=== PATIENT | female | born 1930 | race Caucasian/White ===

== ENCOUNTER 2017-09-09 11:09 | Inpatient (IN) | payer MEDICARE, BC ==
[~2017-09-09] VITALS: Ht 160 cm; Wt 73.4 kg
[2017-09-09 12:06] LABS: BASOPHILS % (AUTO) 0.2 % (0-1); EOSINOPHILS # (AUTO) 0.1 X10'3 (0-0.9); EOSINOPHILS % (AUTO) 1.3 % (0-6); HEMATOCRIT 36.4 % (35.0-45.0); HEMOGLOBIN 12.5 g/dl (12.0-16.0); LYMPHOCYTES # (AUTO) 0.6 X10'3 (1.1-4.8); LYMPHOCYTES % (AUTO) 8.5 % (21-51); MEAN CORPUSCULAR HGB CONC 34.4 % (33.0-36.5); MEAN CORPUSCULAR VOLUME 84.3 FL (78-98); MEAN PLATELET VOLUME 6.3 FL (7.4-10.4); MONOCYTES # (AUTO) 0.6 X10'3 (0-0.9); MONOCYTES % (AUTO) 8.7 % (2-12); NEUTROPHILS # (AUTO) 5.7 X10'3 (1.8-7.7); NEUTROPHILS % (AUTO) 81.3 % (42-75); PLATELET COUNT 205 X10'3 (140-440); RED BLOOD COUNT 4.32 X10'6 (4.20-5.60); RED CELL DISTRIBUTION WIDTH 13.4 % (11.5-14.5)
[2017-09-09 12:28] LABS: ALANINE AMINOTRANSFERASE 20 U/L (12-78); ALBUMIN 3.5 G/DL (3.4-5.0); ALBUMIN/GLOBULIN RATIO 1.1 (1.1-1.5); ALKALINE PHOSPHATASE 106 IU/L (46-116); ANION GAP 7 (8-16); ASPARTATE AMINO TRANSFERASE 19 U/L (10-37); BILIRUBIN,TOTAL 0.5 MG/DL (0.1-1.0); BLOOD UREA NITROGEN 16 MG/DL (7-18); BUN/CREATININE RATIO 17.8 (6.6-38.0); CALCIUM 9.5 MG/DL (8.5-10.1); CHLORIDE 100 MMOL/L (99-107); GLUCOSE 128 MG/DL (70-104); POTASSIUM 4.2 MMOL/L (3.5-5.1); SODIUM 135 MMOL/L (135-145); TOTAL CARBON DIOXIDE 27.8 MMOL/L (24-32); TOTAL PROTEIN 6.7 G/DL (6.4-8.2); eGFR 60 ML/MIN
[2017-09-09] MEDS ORDERED: nitroGLYCERIN 0.4mg SUBLingual tab SL PRN ×2 (12:30→13:25)
[2017-09-09] MEDS ORDERED: magnesium 4gm in 100ml NS 100 ML IV PRN (13:20)
[2017-09-09] MEDS ORDERED: morphine 2 MG/ML inj. syringe IV PRN ×2 (13:20)
[2017-09-09] MEDS ORDERED: magnesium Cl slow-release 64mg tablet PO PRN (13:20)
[2017-09-09] MEDS ORDERED: potassium Cl 40MEQ/NS 500ml 500 ML IV PRN ×2 (13:20)
[2017-09-09] MEDS ORDERED: magnesium 2GM in 50ml NS 50 ML IV PRN (13:20)
[2017-09-09] MEDS ORDERED: ondansetron/PF 4mg/2ml inj IV PRN (13:20)
[2017-09-09] MEDS ORDERED: acetaminophen 325mg tablet PO PRN ×2 (13:20)
[2017-09-09] MEDS ORDERED: mag hydrox/Alum hydrox/simeth 30ml oral suspension PO PRN (13:20)
[2017-09-09] MEDS ORDERED: HYDROcodone/acetaminophen 10/325mg tab PO PRN (13:20)
[2017-09-09] MEDS ORDERED: potassium Cl 20 mEq SR tablet PO PRN ×2 (13:20)
[2017-09-09] MEDS ORDERED: magnesium hydroxide 30ml (MOM) UD suspension PO PRN (13:20)
[2017-09-09] MEDS ORDERED: metoprolol tartrate 1mg/ml inj IV PRN (13:25)
[2017-09-09] MEDS ORDERED: regadenoson 0.4mg/5ml syringe IV ONE (13:25)
[2017-09-09] MEDS ORDERED: aminophylline 250mg/10ml inj. IV PRN (13:25)
[2017-09-09] MEDS: normal saline 1000ml 1,000 ML IV SCH (14:44)
[2017-09-09 17:08] VITALS: BP 162/68
[2017-09-09 18:00] VITALS: BP 184/78
[2017-09-09 18:30] VITALS: BP 176/65
[2017-09-09] MEDS: docusate sod 100mg capsule PO SCH (20:00)
[2017-09-09] MEDS ORDERED: heparin, porcine 5000 units/ml vial SQ SCH (20:00)
[2017-09-09 20:28] VITALS: BP 166/61
[2017-09-09] MEDS ORDERED: temazepam 15mg capsule PO PRN (21:00)
[2017-09-09] MEDS ORDERED: MEMA10TA PO (21:23)
[2017-09-09] MEDS ORDERED: ATOR20TA66 PO (21:23)
[2017-09-09] MEDS ORDERED: LEVO50TA8 PO (21:23)
[2017-09-09] MEDS ORDERED: ASPI81TA52 PO (21:23)
[2017-09-09] MEDS ORDERED: LISI10TA4 PO (21:23)
[2017-09-09] MEDS ORDERED: MULT-38 PO (21:23)
[2017-09-09 22:00] VITALS: BP 158/67
[2017-09-10] VITALS (13 sets, daily range): BP systolic 106–150; BP diastolic 48–90
[2017-09-10] MEDS: enoxaparin 60mg/0.6ml syringe SUBCUT SCH ×2 (00:49→08:00)
[2017-09-10 07:30] LABS: BASOPHILS % (AUTO) 0.4 % (0-1); EOSINOPHILS # (AUTO) 0.1 X10'3 (0-0.9); EOSINOPHILS % (AUTO) 1.9 % (0-6); HEMOGLOBIN 11.6 g/dl (12.0-16.0); LYMPHOCYTES # (AUTO) 0.8 X10'3 (1.1-4.8); LYMPHOCYTES % (AUTO) 13.9 % (21-51); MEAN CORPUSCULAR HEMOGLOBIN 28.8 PG (27.0-31.0); MEAN CORPUSCULAR VOLUME 84.7 FL (78-98); MEAN PLATELET VOLUME 6.8 FL (7.4-10.4); MONOCYTES # (AUTO) 0.7 X10'3 (0-0.9); MONOCYTES % (AUTO) 13.5 % (2-12); NEUTROPHILS # (AUTO) 3.9 X10'3 (1.8-7.7); NEUTROPHILS % (AUTO) 70.3 % (42-75); PLATELET COUNT 193 X10'3 (140-440); RED BLOOD COUNT 4.02 X10'6 (4.20-5.60); RED CELL DISTRIBUTION WIDTH 13.4 % (11.5-14.5); WHITE BLOOD COUNT 5.5 X10'3 (4.5-11.0)
[2017-09-10 07:51] LABS: ALBUMIN 3.2 G/DL (3.4-5.0); ANION GAP 8 (8-16); BLOOD UREA NITROGEN 15 MG/DL (7-18); BUN/CREATININE RATIO 19.2 (6.6-38.0); CALCIUM 9.2 MG/DL (8.5-10.1); CHLORIDE 101 MMOL/L (99-107); CREATININE 0.78 MG/DL (0.40-0.90); GLUCOSE 95 MG/DL (70-104); MAGNESIUM 1.9 MG/DL (1.5-2.4); POTASSIUM 3.9 MMOL/L (3.5-5.1); SODIUM 136 MMOL/L (135-145); TOTAL CARBON DIOXIDE 26.8 MMOL/L (24-32); eGFR 70 ML/MIN
[2017-09-10 07:54] LABS: TROPONIN I 11.42 NG/ML (0.0-0.05)
[2017-09-10] MEDS: K and/or MAG REPLACEMENT MC SCH (08:00)
[2017-09-10] MEDS: docusate sod 100mg capsule PO SCH ×2 (08:00→20:52)
[2017-09-10] MEDS: pantoprazole 40mg Tablet.DR PO SCH (08:53)
[2017-09-10] MEDS ORDERED: heparin 10,000 units/1 ML INJ IV PRN (09:05)
[2017-09-10] MEDS ORDERED: heparin 10,000 units/1 ML INJ IV ONE (09:05)
[2017-09-10] MEDS: normal saline 1000ml 1,000 ML IV SCH (09:18)
[2017-09-10 11:13] LABS: BASOPHILS % (AUTO) 0.3 % (0-1); EOSINOPHILS % (AUTO) 0.2 % (0-6); HEMATOCRIT 33.3 % (35.0-45.0); HEMOGLOBIN 11.3 g/dl (12.0-16.0); LYMPHOCYTES # (AUTO) 0.8 X10'3 (1.1-4.8); LYMPHOCYTES % (AUTO) 14.1 % (21-51); MEAN CORPUSCULAR HEMOGLOBIN 28.8 PG (27.0-31.0); MEAN CORPUSCULAR VOLUME 84.7 FL (78-98); MEAN PLATELET VOLUME 6.6 FL (7.4-10.4); MONOCYTES # (AUTO) 0.7 X10'3 (0-0.9); MONOCYTES % (AUTO) 12.5 % (2-12); NEUTROPHILS % (AUTO) 72.9 % (42-75); PLATELET COUNT 189 X10'3 (140-440); RED BLOOD COUNT 3.93 X10'6 (4.20-5.60); RED CELL DISTRIBUTION WIDTH 13.4 % (11.5-14.5); WHITE BLOOD COUNT 5.4 X10'3 (4.5-11.0)
[2017-09-10 11:26] LABS: PROTHROMBIN TIME 10.4 SECONDS (9.0-12.0)
[2017-09-10] MEDS ORDERED: midazolam 2 mg/2 ml injection ONE (12:34)
[2017-09-10] MEDS ORDERED: iohexol 350 MG/ML 50ML vial IV ONE (12:34)
[2017-09-10] MEDS ORDERED: iohexol 350MG/ML 100ml bottle IV ONE ×2 (12:34→13:39)
[2017-09-10] MEDS ORDERED: nitroGLYCERIN-Tridil 50MG/D5W 250 ML IV ONE (12:34)
[2017-09-10] MEDS ORDERED: fentaNYL/PF 50MCG/1 ML 2ML syringe ONE (12:34)
[2017-09-10] MEDS ORDERED: heparin 1,000unit/ml 10ml vial 10 ML ONE (12:34)
[2017-09-10] MEDS ORDERED: LIDOcaine 1%/PF (10mg/ml) 5ml vial ONE (12:34)
[2017-09-10] MEDS ORDERED: ticagrelor 90mg tablet ONE (14:32)
[2017-09-10] MEDS ORDERED: protamine sulfate 10mg/ml inj. ONE (14:53)
[2017-09-10] MEDS ORDERED: metoprolol tartrate 1mg/ml inj IV ONE (15:03)
[2017-09-10] MEDS ORDERED: normal saline 1000ml 1,000 ML IV ONE ×2 (15:40→19:45)
[2017-09-10] MEDS ORDERED: ticagrelor 90mg tablet PO ONE (15:45)
[2017-09-10] MEDS ORDERED: proCHLORperazine 10 MG/2 ml inj IV PRN (15:45)
[2017-09-10] MEDS ORDERED: morphine 2 MG/ML inj. syringe IV PRN (15:45)
[2017-09-10] MEDS ORDERED: nitroGLYCERIN-Tridil 50MG/D5W 250 ML IV PRN (15:45)
[2017-09-10] MEDS ORDERED: cyclobenzaprine 10mg tablet PO PRN (15:45)
[2017-09-10] MEDS ORDERED: acetaminophen 325mg tablet PO PRN (15:50)
[2017-09-10] MEDS ORDERED: amiodarone 150mg/dext, iso-os 100 ML IV ONE (15:55)
[2017-09-10] MEDS: carvedilol 6.25mg tablet PO SCH ×2 (16:46→20:52)
[2017-09-10] MEDS: OXAZEpam 15mg capsule PO PRN (16:55)
[2017-09-10 17:06] LABS: BASOPHILS % (AUTO) 0.3 % (0-1); EOSINOPHILS # (AUTO) 0.1 X10'3 (0-0.9); EOSINOPHILS % (AUTO) 1.5 % (0-6); HEMATOCRIT 35.5 % (35.0-45.0); HEMOGLOBIN 12.3 g/dl (12.0-16.0); LYMPHOCYTES # (AUTO) 0.7 X10'3 (1.1-4.8); LYMPHOCYTES % (AUTO) 8.1 % (21-51); MEAN CORPUSCULAR HEMOGLOBIN 28.8 PG (27.0-31.0); MEAN CORPUSCULAR HGB CONC 34.5 % (33.0-36.5); MEAN CORPUSCULAR VOLUME 83.3 FL (78-98); MEAN PLATELET VOLUME 6.7 FL (7.4-10.4); MONOCYTES # (AUTO) 0.9 X10'3 (0-0.9); MONOCYTES % (AUTO) 10.2 % (2-12); NEUTROPHILS # (AUTO) 6.8 X10'3 (1.8-7.7); NEUTROPHILS % (AUTO) 79.9 % (42-75); PLATELET COUNT 192 X10'3 (140-440); RED BLOOD COUNT 4.26 X10'6 (4.20-5.60); RED CELL DISTRIBUTION WIDTH 13.6 % (11.5-14.5); WHITE BLOOD COUNT 8.5 X10'3 (4.5-11.0)
[2017-09-10 17:14] LABS: CHOL/HDL RATIO 1.6 (0.00-4.99); CHOLESTEROL 150 MG/DL (0-200); HDL CHOLESTEROL 91 MG/DL (35-60); LDL CHOLESTEROL 56 MG/DL (50-100); TRIGLYCERIDES 40 MG/DL (20-135)
[2017-09-10] MEDS: HYDROcodone/acetaminophen 5mg/325mg tablet PO PRN (19:00)
[2017-09-10] MEDS ORDERED: MEMANTINE HCL 5 MG PO SCH (20:00)
[2017-09-10] MEDS: memantine 5mg tablet PO SCH (20:52)
[2017-09-10] MEDS: atorvastatin 20mg tablet PO SCH (20:52)
[2017-09-11] VITALS (20 sets, daily range): BP systolic 91–174; BP diastolic 46–84
[2017-09-11] MEDS: HYDROcodone/acetaminophen 5mg/325mg tablet PO PRN (01:47)
[2017-09-11 05:10] LABS: BASOPHILS % (AUTO) 0.4 % (0-1); EOSINOPHILS # (AUTO) 0.1 X10'3 (0-0.9); EOSINOPHILS % (AUTO) 1.8 % (0-6); HEMATOCRIT 32.5 % (35.0-45.0); HEMOGLOBIN 11.3 g/dl (12.0-16.0); LYMPHOCYTES # (AUTO) 0.7 X10'3 (1.1-4.8); LYMPHOCYTES % (AUTO) 10.5 % (21-51); MEAN CORPUSCULAR HEMOGLOBIN 28.8 PG (27.0-31.0); MEAN CORPUSCULAR HGB CONC 34.6 % (33.0-36.5); MEAN CORPUSCULAR VOLUME 83.1 FL (78-98); MEAN PLATELET VOLUME 6.5 FL (7.4-10.4); MONOCYTES # (AUTO) 0.8 X10'3 (0-0.9); MONOCYTES % (AUTO) 12.4 % (2-12); NEUTROPHILS # (AUTO) 4.7 X10'3 (1.8-7.7); NEUTROPHILS % (AUTO) 74.9 % (42-75); PLATELET COUNT 195 X10'3 (140-440); RED BLOOD COUNT 3.91 X10'6 (4.20-5.60); RED CELL DISTRIBUTION WIDTH 13.5 % (11.5-14.5); WHITE BLOOD COUNT 6.3 X10'3 (4.5-11.0)
[2017-09-11 05:33] LABS: ALBUMIN 3.1 G/DL (3.4-5.0); ANION GAP 7 (8-16); BLOOD UREA NITROGEN 14 MG/DL (7-18); BUN/CREATININE RATIO 18.2 (6.6-38.0); CALCIUM 9.4 MG/DL (8.5-10.1); CHLORIDE 101 MMOL/L (99-107); CREATININE 0.77 MG/DL (0.40-0.90); GLUCOSE 89 MG/DL (70-104); POTASSIUM 4.3 MMOL/L (3.5-5.1); SODIUM 135 MMOL/L (135-145); TOTAL CARBON DIOXIDE 26.8 MMOL/L (24-32); eGFR 71 ML/MIN
[2017-09-11] MEDS: normal saline 1000ml 1,000 ML IV SCH (06:07)
[2017-09-11] MEDS: K and/or MAG REPLACEMENT MC SCH (07:14)
[2017-09-11] MEDS: ticagrelor 90mg tablet PO SCH ×2 (07:53→20:14)
[2017-09-11] MEDS: pantoprazole 40mg Tablet.DR PO SCH (07:53)
[2017-09-11] MEDS: OXAZEpam 15mg capsule PO PRN (07:53)
[2017-09-11] MEDS: levoTHYROXINE 25mcg tablet PO SCH (07:54)
[2017-09-11] MEDS: carvedilol 6.25mg tablet PO SCH ×2 (07:54→20:14)
[2017-09-11] MEDS: memantine 5mg tablet PO SCH ×2 (07:55→20:14)
[2017-09-11] MEDS: docusate sod 100mg capsule PO SCH ×2 (07:56→20:14)
[2017-09-11] MEDS ORDERED: lisinopril 10 MG tablet PO SCH (08:00)
[2017-09-11] MEDS ORDERED: non-formulary drug (Levothyroxine Sodium 1 TAB) PO SCH (08:00)
[2017-09-11] MEDS ORDERED: furosemide 20 MG/2 ML vial IV ONE (11:40)
[2017-09-11] MEDS: lisinopril 10 MG tablet PO SCH ×2 (15:37→20:14)
[2017-09-11] MEDS: nitroGLYCERIN 0.4mg/hour patch TD SCH (17:12)
[2017-09-11] MEDS: atorvastatin 20mg tablet PO SCH (20:14)
[2017-09-12 03:00] VITALS: BP 137/58
[2017-09-12] MEDS ORDERED: diltiazem-D5W 125mg/125ml 125 ML IV SCH (04:30)
[2017-09-12 06:00] VITALS: BP 122/57
[2017-09-12 06:07] LABS: ALBUMIN 3.6 G/DL (3.4-5.0); ANION GAP 7 (8-16); BLOOD UREA NITROGEN 12 MG/DL (7-18); BUN/CREATININE RATIO 14.3 (6.6-38.0); CALCIUM 9.9 MG/DL (8.5-10.1); CHLORIDE 99 MMOL/L (99-107); CREATININE 0.84 MG/DL (0.40-0.90); GLUCOSE 109 MG/DL (70-104); MAGNESIUM 1.9 MG/DL (1.5-2.4); POTASSIUM 3.7 MMOL/L (3.5-5.1); SODIUM 136 MMOL/L (135-145); TOTAL CARBON DIOXIDE 29.9 MMOL/L (24-32); eGFR 64 ML/MIN
[2017-09-12] MEDS: memantine 5mg tablet PO SCH ×2 (07:15→20:21)
[2017-09-12] MEDS: levoTHYROXINE 25mcg tablet PO SCH (07:15)
[2017-09-12] MEDS: carvedilol 6.25mg tablet PO SCH ×2 (07:16→20:21)
[2017-09-12] MEDS: lisinopril 10 MG tablet PO SCH ×2 (07:16→20:21)
[2017-09-12] MEDS: ticagrelor 90mg tablet PO SCH ×2 (07:16→20:21)
[2017-09-12] MEDS: docusate sod 100mg capsule PO SCH ×2 (07:16→20:21)
[2017-09-12] MEDS: pantoprazole 40mg Tablet.DR PO SCH (07:16)
[2017-09-12] MEDS: K and/or MAG REPLACEMENT MC SCH (08:00)
[2017-09-12] MEDS: nitroGLYCERIN 0.4mg/hour patch TD SCH (08:00)
[2017-09-12] MEDS: aspirin 81mg tab.chew PO SCH (08:41)
[2017-09-12] MEDS ORDERED: potassium Cl 20 mEq SR tablet PO STA (09:38)
[2017-09-12] MEDS ORDERED: furosemide 20 MG/2 ML vial IV ONE (09:40)
[2017-09-12] MEDS ORDERED: amiodarone in dextrose, iso-osm 150mg/100ml bag IV ONE (09:40)
[2017-09-12 10:21] LABS: ALANINE AMINOTRANSFERASE 37 U/L (12-78); ALKALINE PHOSPHATASE 97 IU/L (46-116); ASPARTATE AMINO TRANSFERASE 75 U/L (10-37); BILIRUBIN,DIRECT 0.1 MG/DL (0-0.3); BILIRUBIN,TOTAL 0.8 MG/DL (0.1-1.0); TOTAL PROTEIN 7.2 G/DL (6.4-8.2)
[2017-09-12] MEDS: albuterol 2.5 MG/3 ML nebule NEB PRN ×3 (10:22→21:40)
[2017-09-12 11:00] VITALS: BP 112/55
[2017-09-12 15:00] VITALS: BP 119/50
[2017-09-12 19:00] VITALS: BP 161/69
[2017-09-12] MEDS: atorvastatin 20mg tablet PO SCH (20:21)
[2017-09-12] MEDS: amiodarone 200mg tablet PO SCH (20:21)
[2017-09-12 23:00] VITALS: BP 157/63
[2017-09-12] MEDS: HYDROcodone/acetaminophen 5mg/325mg tablet PO PRN (23:27)
[2017-09-13 03:00] VITALS: BP 154/57
[2017-09-13 05:31] LABS: ALBUMIN 3.2 G/DL (3.4-5.0); ANION GAP 7 (8-16); BLOOD UREA NITROGEN 13 MG/DL (7-18); BUN/CREATININE RATIO 14.9 (6.6-38.0); CALCIUM 9.1 MG/DL (8.5-10.1); CHLORIDE 96 MMOL/L (99-107); CREATININE 0.87 MG/DL (0.40-0.90); GLUCOSE 97 MG/DL (70-104); POTASSIUM 3.6 MMOL/L (3.5-5.1); SODIUM 131 MMOL/L (135-145); TOTAL CARBON DIOXIDE 28.3 MMOL/L (24-32); eGFR 62 ML/MIN
[2017-09-13 06:00] VITALS: BP 155/57
[2017-09-13] MEDS: lisinopril 10 MG tablet PO SCH (07:10)
[2017-09-13] MEDS: docusate sod 100mg capsule PO SCH (07:10)
[2017-09-13] MEDS: pantoprazole 40mg Tablet.DR PO SCH (07:10)
[2017-09-13] MEDS: ticagrelor 90mg tablet PO SCH (07:10)
[2017-09-13] MEDS: amiodarone 200mg tablet PO SCH (07:10)
[2017-09-13] MEDS: carvedilol 6.25mg tablet PO SCH (07:10)
[2017-09-13] MEDS: memantine 5mg tablet PO SCH (07:10)
[2017-09-13] MEDS: levoTHYROXINE 25mcg tablet PO SCH (07:10)
[2017-09-13] MEDS: albuterol 2.5 MG/3 ML nebule NEB PRN ×2 (07:25→11:50)
[2017-09-13] MEDS: nitroGLYCERIN 0.4mg/hour patch TD SCH (08:00)
[2017-09-13] MEDS: K and/or MAG REPLACEMENT MC SCH (08:00)
[2017-09-13] MEDS: aspirin 81mg tab.chew PO SCH (10:27)
[2017-09-13 11:00] VITALS: BP 125/56
[2017-09-13] MEDS ORDERED: NIT10P TD (12:30)
[2017-09-13] MEDS ORDERED: TICA90TA PO (12:30)
[2017-09-13] MEDS ORDERED: AMIO200T57 PO (12:30)
[2017-09-13] MEDS ORDERED: NITR0.4T51 SL (12:30)
[2017-09-13] MEDS ORDERED: CARV6.253 PO (12:30)
[2017-09-13] MEDS ORDERED: LISI1TAB9 PO (12:30)
[2017-09-13] MEDS: HYDROcodone/acetaminophen 5mg/325mg tablet PO PRN (13:31)
== END 2017-09-13 15:55 | disposition home or self-care (01) | DRG 247 ==
LOC: ER 11:09 → ED HOLD 12:49 → EDBEDREQ 15:45 → PCU 3S 16:25 → ICU 2S 09-10 15:02 → PCU 3S 09-11 17:45
PROVIDERS: ADMIT Internal Medicine; ATTEND Internal Medicine
PROC: 4A02XM4 Measurement of Cardiac Total Activity, External Approach (ICD-10-PCS; 2017-09-09)
PROC: 3E073KZ Introduction of Other Diagnostic Substance into Coronary Artery, Percutaneous Approach (ICD-10-PCS; 2017-09-09)
PROC: 027034Z Dilation of Coronary Artery, One Artery with Drug-eluting Intraluminal Device, Percutaneous Approach (ICD-10-PCS; principal; 2017-09-10)
PROC: 4A023N7 Measurement of Cardiac Sampling and Pressure, Left Heart, Percutaneous Approach (ICD-10-PCS; 2017-09-10)
PROC: B2111ZZ Fluoroscopy of Multiple Coronary Arteries using Low Osmolar Contrast (ICD-10-PCS; 2017-09-10)
PROC: B2151ZZ Fluoroscopy of Left Heart using Low Osmolar Contrast (ICD-10-PCS; 2017-09-10)
DX: I21.4 Non-ST elevation (NSTEMI) myocardial infarction (principal); I48.0 Paroxysmal atrial fibrillation; I11.0 Hypertensive heart disease with heart failure; I50.32 Chronic diastolic (congestive) heart failure; F03.90 Unspecified dementia, unspecified severity, without behavioral disturbance, psychotic disturbance, mood disturbance, and anxiety; J44.9 Chronic obstructive pulmonary disease, unspecified; E78.5 Hyperlipidemia, unspecified; E03.9 Hypothyroidism, unspecified; I25.10 Atherosclerotic heart disease of native coronary artery without angina pectoris; M19.90 Unspecified osteoarthritis, unspecified site; H11.32 Conjunctival hemorrhage, left eye; Z90.49 Acquired absence of other specified parts of digestive tract; Z95.5 Presence of coronary angioplasty implant and graft; Z98.49 Cataract extraction status, unspecified eye; Z88.0 Allergy status to penicillin; Z88.1 Allergy status to other antibiotic agents; Z79.82 Long term (current) use of aspirin; Z79.899 Other long term (current) drug therapy; Z87.891 Personal history of nicotine dependence
CPT/HCPCS: 93306; 93458; 99285; C9600; 36415; 71045; 78451; 80048; 80053; 80061; 80076; 83605; 83735; 83880; 84439; 84443; 84484; 85025; 85347; 85610; 85730; 87040; 87070; 93005; 93308; 94640; 94760; 97110; 97116; 97530; 99152; 99153; A4620; A6213; A6257; A6449; A9500; C1725; C1769; C1874; J0282; J1644; J1650; J1940; J2001; J2250; J2270; J2720; J3010; J3490; J7030; Q9967

== ENCOUNTER 2017-09-14 10:00 | Inpatient (IN) | payer MEDICARE, BC ==
[~2017-09-14] VITALS: Ht 152.4 cm; Wt 70.0 kg
[~2017-09-14 10:00] MED LIST: AMIO200T57 PO; ASPI81TA52 PO; ATOR20TA66 PO; CARV6.253 PO; LEVO50TA8 PO; LISI1TAB9 PO; MEMA10TA PO; MULT-38 PO; NIT10P TD; NITR0.4T51 SL; TICA90TA PO
[2017-09-14 10:47] LABS: BASOPHILS % (AUTO) 0.5 % (0-1); EOSINOPHILS # (AUTO) 0.1 X10'3 (0-0.9); EOSINOPHILS % (AUTO) 1.6 % (0-6); HEMATOCRIT 34.7 % (35.0-45.0); HEMOGLOBIN 12.1 g/dl (12.0-16.0); LYMPHOCYTES # (AUTO) 0.6 X10'3 (1.1-4.8); LYMPHOCYTES % (AUTO) 11.4 % (21-51); MEAN CORPUSCULAR HEMOGLOBIN 28.9 PG (27.0-31.0); MEAN CORPUSCULAR VOLUME 82.5 FL (78-98); MEAN PLATELET VOLUME 7.2 FL (7.4-10.4); MONOCYTES # (AUTO) 0.6 X10'3 (0-0.9); MONOCYTES % (AUTO) 12.1 % (2-12); NEUTROPHILS # (AUTO) 4.1 X10'3 (1.8-7.7); NEUTROPHILS % (AUTO) 74.4 % (42-75); PLATELET COUNT 197 X10'3 (140-440); RED CELL DISTRIBUTION WIDTH 12.7 % (11.5-14.5); WHITE BLOOD COUNT 5.4 X10'3 (4.5-11.0)
[2017-09-14 10:57] LABS: ALANINE AMINOTRANSFERASE 39 U/L (12-78); ALBUMIN 3.7 G/DL (3.4-5.0); ALBUMIN/GLOBULIN RATIO 1.1 (1.1-1.5); ALKALINE PHOSPHATASE 105 IU/L (46-116); ANION GAP 5 (8-16); ASPARTATE AMINO TRANSFERASE 41 U/L (10-37); BILIRUBIN,TOTAL 0.8 MG/DL (0.1-1.0); BLOOD UREA NITROGEN 13 MG/DL (7-18); BUN/CREATININE RATIO 15.1 (6.6-38.0); CALCIUM 9.5 MG/DL (8.5-10.1); CHLORIDE 93 MMOL/L (99-107); CREATININE 0.86 MG/DL (0.40-0.90); GLUCOSE 108 MG/DL (70-104); POTASSIUM 3.9 MMOL/L (3.5-5.1); SODIUM 128 MMOL/L (135-145); TOTAL CARBON DIOXIDE 30.2 MMOL/L (24-32); TOTAL PROTEIN 7.2 G/DL (6.4-8.2); eGFR 63 ML/MIN
[2017-09-14] MEDS ORDERED: albuterol 2.5 MG/3 ML nebule NEB ONE ×3 (11:45→14:35)
[2017-09-14] MEDS ORDERED: methylPREDNISolone sod succ 125mg/2ml vial IV ONE (11:45)
[2017-09-14] MEDS ORDERED: mag hydrox/Alum hydrox/simeth 30ml oral suspension PO PRN (15:25)
[2017-09-14] MEDS ORDERED: magnesium 4gm in 100ml NS 100 ML IV PRN (15:25)
[2017-09-14] MEDS ORDERED: ondansetron/PF 4mg/2ml inj IV PRN (15:25)
[2017-09-14] MEDS ORDERED: HYDROcodone/acetaminophen 5mg/325mg tablet PO PRN (15:25)
[2017-09-14] MEDS ORDERED: magnesium 2GM in 50ml NS 50 ML IV PRN (15:25)
[2017-09-14] MEDS ORDERED: potassium Cl 40MEQ/NS 500ml 500 ML IV PRN ×2 (15:25)
[2017-09-14] MEDS ORDERED: HYDROcodone/acetaminophen 10/325mg tab PO PRN (15:25)
[2017-09-14] MEDS ORDERED: morphine 2 MG/ML inj. syringe IV PRN ×2 (15:25)
[2017-09-14] MEDS ORDERED: magnesium hydroxide 30ml (MOM) UD suspension PO PRN (15:25)
[2017-09-14] MEDS ORDERED: bisacodyl 10mg suppository rectal RC PRN (15:25)
[2017-09-14] MEDS ORDERED: magnesium Cl slow-release 64mg tablet PO PRN (15:25)
[2017-09-14] MEDS ORDERED: acetaminophen 325mg tablet PO PRN (15:25)
[2017-09-14] MEDS ORDERED: potassium Cl 20 mEq SR tablet PO PRN ×2 (15:25)
[2017-09-14] MEDS ORDERED: nitroGLYCERIN 0.4mg SUBLingual tab SL PRN (15:30)
[2017-09-14] MEDS ORDERED: LORazepam 2 mg/ml vial IV PRN (15:30)
[2017-09-14] MEDS ORDERED: albuterol 2.5 MG/3 ML nebule NEB PRN (15:30)
[2017-09-14] MEDS ORDERED: benzonatate 100mg capsule PO SCH (16:00)
[2017-09-14] MEDS: furosemide 20 MG/2 ML vial IV SCH ×2 (16:23→20:52)
[2017-09-14] MEDS: levoFLOXACIN-Levaquin 750MG/D5 150 ML IV SCH (16:23)
[2017-09-14] MEDS: benzonatate 100mg capsule PO SCH ×2 (16:23→23:23)
[2017-09-14] MEDS: potassium Cl 20 mEq SR tablet PO SCH (18:12)
[2017-09-14] MEDS: ipratropium/albuterol 3ml nebule NEB SCH ×2 (19:07→23:21)
[2017-09-14] MEDS: carvedilol 6.25mg tablet PO SCH (20:52)
[2017-09-14] MEDS: methylPREDNISolone sod succ 125mg/2ml vial IV SCH (20:52)
[2017-09-14] MEDS: ticagrelor 90mg tablet PO SCH (20:53)
[2017-09-14] MEDS: docusate sod 100mg capsule PO SCH (20:56)
[2017-09-14] MEDS: memantine 5mg tablet PO SCH (20:56)
[2017-09-14] MEDS: atorvastatin 20mg tablet PO SCH (20:58)
[2017-09-14 21:20] VITALS: BP 151/68
[2017-09-14 22:00] VITALS: BP 166/80
[2017-09-15 02:00] VITALS: BP 162/73
[2017-09-15] MEDS: methylPREDNISolone sod succ 125mg/2ml vial IV SCH ×5 (02:16→23:43)
[2017-09-15] MEDS: ipratropium/albuterol 3ml nebule NEB SCH ×6 (03:00→23:31)
[2017-09-15 05:29] LABS: BASOPHILS % (AUTO) 0.3 % (0-1); EOSINOPHILS % (AUTO) 0.9 % (0-6); HEMATOCRIT 36.9 % (35.0-45.0); HEMOGLOBIN 12.8 g/dl (12.0-16.0); LYMPHOCYTES # (AUTO) 0.4 X10'3 (1.1-4.8); LYMPHOCYTES % (AUTO) 16.2 % (21-51); MEAN CORPUSCULAR HEMOGLOBIN 28.8 PG (27.0-31.0); MEAN CORPUSCULAR HGB CONC 34.8 % (33.0-36.5); MEAN CORPUSCULAR VOLUME 82.9 FL (78-98); MEAN PLATELET VOLUME 7.1 FL (7.4-10.4); MONOCYTES # (AUTO) 0.1 X10'3 (0-0.9); MONOCYTES % (AUTO) 2.8 % (2-12); NEUTROPHILS # (AUTO) 1.8 X10'3 (1.8-7.7); NEUTROPHILS % (AUTO) 79.8 % (42-75); PLATELET COUNT 217 X10'3 (140-440); RED BLOOD COUNT 4.45 X10'6 (4.20-5.60); RED CELL DISTRIBUTION WIDTH 13.1 % (11.5-14.5); WHITE BLOOD COUNT 2.2 X10'3 (4.5-11.0)
[2017-09-15 05:41] LABS: ANION GAP 7 (8-16); BLOOD UREA NITROGEN 17 MG/DL (7-18); BUN/CREATININE RATIO 19.5 (6.6-38.0); CALCIUM 9.5 MG/DL (8.5-10.1); CHLORIDE 94 MMOL/L (99-107); CREATININE 0.87 MG/DL (0.40-0.90); GLUCOSE 152 MG/DL (70-104); MAGNESIUM 1.9 MG/DL (1.5-2.4); POTASSIUM 3.3 MMOL/L (3.5-5.1); SODIUM 132 MMOL/L (135-145); TOTAL CARBON DIOXIDE 31.2 MMOL/L (24-32); eGFR 62 ML/MIN
[2017-09-15 05:42] LABS: ALANINE AMINOTRANSFERASE 31 U/L (12-78); ALBUMIN 3.5 G/DL (3.4-5.0); ALKALINE PHOSPHATASE 102 IU/L (46-116); ASPARTATE AMINO TRANSFERASE 30 U/L (10-37); BILIRUBIN,TOTAL 0.8 MG/DL (0.1-1.0); TOTAL PROTEIN 7.1 G/DL (6.4-8.2)
[2017-09-15 06:00] VITALS: BP 152/63
[2017-09-15 07:09] LABS: LYMPHOCYTES % (MANUAL) 12 % (21-51); MONOCYTES % (MANUAL) 4 % (2-12); NEUTROPHILS % (MANUAL) 84 % (42-75); PLATELET ESTIMATE NORMAL; TOTAL CELLS COUNTED 100
[2017-09-15] MEDS: benzonatate 100mg capsule PO SCH ×3 (07:45→23:42)
[2017-09-15] MEDS: memantine 5mg tablet PO SCH ×2 (07:46→19:35)
[2017-09-15] MEDS: multivitamins, therapeutics tablet PO SCH (07:46)
[2017-09-15] MEDS: carvedilol 6.25mg tablet PO SCH ×2 (07:46→19:35)
[2017-09-15] MEDS: levoTHYROXINE 25mcg tablet PO SCH (07:47)
[2017-09-15] MEDS: ticagrelor 90mg tablet PO SCH ×2 (07:48→19:35)
[2017-09-15] MEDS: aspirin 81mg tablet.DR PO SCH (07:48)
[2017-09-15] MEDS: docusate sod 100mg capsule PO SCH ×2 (07:48→19:37)
[2017-09-15] MEDS: amiodarone 200mg tablet PO SCH (07:49)
[2017-09-15] MEDS: furosemide 20 MG/2 ML vial IV SCH ×2 (07:50→19:35)
[2017-09-15] MEDS: levoFLOXACIN-Levaquin 750MG/D5 150 ML IV SCH (07:54)
[2017-09-15] MEDS: enoxaparin 40mg/0.4ml syringe SUBCUT SCH (07:54)
[2017-09-15] MEDS: nitroGLYCERIN 0.4mg/hour patch TD SCH (07:55)
[2017-09-15] MEDS: potassium Cl 20 mEq SR tablet PO SCH ×3 (07:56→19:48)
[2017-09-15] MEDS: K and/or MAG REPLACEMENT MC SCH (08:00)
[2017-09-15] MEDS: pantoprazole 40mg Tablet.DR PO SCH (08:00)
[2017-09-15 13:33] VITALS: BP 133/55
[2017-09-15 15:00] VITALS: BP 117/59
[2017-09-15] MEDS ORDERED: methylPREDNISolone sod succ 125mg/2ml vial IV SCH (16:00)
[2017-09-15] MEDS: lactobacillus rhamnosus 10,000 MMU CELLS/CAPSULE PO SCH (16:37)
[2017-09-15 19:00] VITALS: BP 125/62
[2017-09-15] MEDS: atorvastatin 20mg tablet PO SCH (19:48)
[2017-09-15 23:00] VITALS: BP 133/69
[2017-09-16] MEDS: ipratropium/albuterol 3ml nebule NEB SCH ×6 (02:56→23:17)
[2017-09-16 03:00] VITALS: BP 132/66
[2017-09-16 06:00] VITALS: BP 125/54
[2017-09-16 06:34] LABS: BASOPHILS % (AUTO) 0 % (0-1); EOSINOPHILS # (AUTO) 0.1 X10'3 (0-0.9); EOSINOPHILS % (AUTO) 1.3 % (0-6); HEMATOCRIT 33.8 % (35.0-45.0); HEMOGLOBIN 11.7 g/dl (12.0-16.0); LYMPHOCYTES # (AUTO) 0.3 X10'3 (1.1-4.8); LYMPHOCYTES % (AUTO) 3.8 % (21-51); MEAN CORPUSCULAR HEMOGLOBIN 28.7 PG (27.0-31.0); MEAN CORPUSCULAR HGB CONC 34.4 % (33.0-36.5); MEAN CORPUSCULAR VOLUME 83.3 FL (78-98); MEAN PLATELET VOLUME 7.2 FL (7.4-10.4); MONOCYTES # (AUTO) 0.2 X10'3 (0-0.9); MONOCYTES % (AUTO) 3.2 % (2-12); NEUTROPHILS # (AUTO) 6.9 X10'3 (1.8-7.7); NEUTROPHILS % (AUTO) 91.7 % (42-75); PLATELET COUNT 221 X10'3 (140-440); RED BLOOD COUNT 4.07 X10'6 (4.20-5.60); WHITE BLOOD COUNT 7.6 X10'3 (4.5-11.0)
[2017-09-16 06:36] LABS: ALANINE AMINOTRANSFERASE 31 U/L (12-78); ALBUMIN 3.3 G/DL (3.4-5.0); ALKALINE PHOSPHATASE 88 IU/L (46-116); ANION GAP 6 (8-16); ASPARTATE AMINO TRANSFERASE 23 U/L (10-37); BILIRUBIN,TOTAL 0.6 MG/DL (0.1-1.0); BLOOD UREA NITROGEN 24 MG/DL (7-18); CALCIUM 9.1 MG/DL (8.5-10.1); CHLORIDE 91 MMOL/L (99-107); CREATININE 1.09 MG/DL (0.40-0.90); GLUCOSE 148 MG/DL (70-104); MAGNESIUM 1.9 MG/DL (1.5-2.4); POTASSIUM 4.1 MMOL/L (3.5-5.1); SODIUM 127 MMOL/L (135-145); TOTAL CARBON DIOXIDE 29.7 MMOL/L (24-32); TOTAL PROTEIN 6.5 G/DL (6.4-8.2); eGFR 48 ML/MIN
[2017-09-16] MEDS: pantoprazole 40mg Tablet.DR PO SCH (07:48)
[2017-09-16] MEDS: levoTHYROXINE 25mcg tablet PO SCH (07:49)
[2017-09-16] MEDS: ticagrelor 90mg tablet PO SCH ×2 (07:49→20:08)
[2017-09-16] MEDS: aspirin 81mg tablet.DR PO SCH (07:49)
[2017-09-16] MEDS: carvedilol 6.25mg tablet PO SCH ×2 (07:50→20:09)
[2017-09-16] MEDS: benzonatate 100mg capsule PO SCH ×3 (07:50→23:27)
[2017-09-16] MEDS: docusate sod 100mg capsule PO SCH ×2 (07:50→20:00)
[2017-09-16] MEDS: memantine 5mg tablet PO SCH ×2 (07:51→20:08)
[2017-09-16] MEDS: amiodarone 200mg tablet PO SCH (07:51)
[2017-09-16] MEDS: multivitamins, therapeutics tablet PO SCH (07:51)
[2017-09-16] MEDS: levoFLOXACIN-Levaquin 750MG/D5 150 ML IV SCH (07:52)
[2017-09-16] MEDS: nitroGLYCERIN 0.4mg/hour patch TD SCH (07:52)
[2017-09-16] MEDS: furosemide 20 MG/2 ML vial IV SCH ×2 (07:52→20:09)
[2017-09-16] MEDS: methylPREDNISolone sod succ 125mg/2ml vial IV SCH ×2 (07:53→20:09)
[2017-09-16] MEDS: potassium Cl 20 mEq SR tablet PO SCH ×3 (07:55→20:08)
[2017-09-16] MEDS: lactobacillus rhamnosus 10,000 MMU CELLS/CAPSULE PO SCH ×2 (07:55→17:22)
[2017-09-16] MEDS: enoxaparin 40mg/0.4ml syringe SUBCUT SCH (07:55)
[2017-09-16] MEDS: K and/or MAG REPLACEMENT MC SCH (08:00)
[2017-09-16 11:00] VITALS: BP 106/57
[2017-09-16 15:00] VITALS: BP 140/63
[2017-09-16 19:00] VITALS: BP 147/64
[2017-09-16] MEDS: atorvastatin 20mg tablet PO SCH (20:07)
[2017-09-16 23:00] VITALS: BP 142/65
[2017-09-17 03:00] VITALS: BP 140/68
[2017-09-17] MEDS: ipratropium/albuterol 3ml nebule NEB SCH ×3 (03:00→11:17)
[2017-09-17 05:48] LABS: BASOPHILS % (AUTO) 0 % (0-1); EOSINOPHILS # (AUTO) 0.1 X10'3 (0-0.9); EOSINOPHILS % (AUTO) 1.6 % (0-6); HEMATOCRIT 35.7 % (35.0-45.0); HEMOGLOBIN 12.4 g/dl (12.0-16.0); LYMPHOCYTES # (AUTO) 0.3 X10'3 (1.1-4.8); LYMPHOCYTES % (AUTO) 4.8 % (21-51); MEAN CORPUSCULAR HEMOGLOBIN 28.9 PG (27.0-31.0); MEAN CORPUSCULAR HGB CONC 34.9 % (33.0-36.5); MEAN CORPUSCULAR VOLUME 82.8 FL (78-98); MEAN PLATELET VOLUME 7.1 FL (7.4-10.4); MONOCYTES # (AUTO) 0.2 X10'3 (0-0.9); MONOCYTES % (AUTO) 2.9 % (2-12); NEUTROPHILS # (AUTO) 6.1 X10'3 (1.8-7.7); NEUTROPHILS % (AUTO) 90.7 % (42-75); PLATELET COUNT 249 X10'3 (140-440); RED BLOOD COUNT 4.31 X10'6 (4.20-5.60); RED CELL DISTRIBUTION WIDTH 13.3 % (11.5-14.5); WHITE BLOOD COUNT 6.7 X10'3 (4.5-11.0)
[2017-09-17 06:00] VITALS: BP 128/68
[2017-09-17 06:57] LABS: ALANINE AMINOTRANSFERASE 35 U/L (12-78); ALBUMIN 3.2 G/DL (3.4-5.0); ALKALINE PHOSPHATASE 84 IU/L (46-116); ANION GAP 7 (8-16); ASPARTATE AMINO TRANSFERASE 20 U/L (10-37); BILIRUBIN,TOTAL 0.6 MG/DL (0.1-1.0); BLOOD UREA NITROGEN 29 MG/DL (7-18); BUN/CREATININE RATIO 24.2 (6.6-38.0); CALCIUM 9.2 MG/DL (8.5-10.1); CHLORIDE 92 MMOL/L (99-107); GLUCOSE 138 MG/DL (70-104); MAGNESIUM 2.1 MG/DL (1.5-2.4); SODIUM 128 MMOL/L (135-145); TOTAL CARBON DIOXIDE 29.4 MMOL/L (24-32); TOTAL PROTEIN 6.5 G/DL (6.4-8.2); eGFR 43 ML/MIN
[2017-09-17] MEDS: K and/or MAG REPLACEMENT MC SCH (08:00)
[2017-09-17] MEDS: amiodarone 200mg tablet PO SCH (08:20)
[2017-09-17] MEDS: ticagrelor 90mg tablet PO SCH (08:20)
[2017-09-17] MEDS: benzonatate 100mg capsule PO SCH (08:20)
[2017-09-17] MEDS: carvedilol 6.25mg tablet PO SCH (08:20)
[2017-09-17] MEDS: docusate sod 100mg capsule PO SCH (08:22)
[2017-09-17] MEDS: memantine 5mg tablet PO SCH (08:22)
[2017-09-17] MEDS: multivitamins, therapeutics tablet PO SCH (08:22)
[2017-09-17] MEDS: pantoprazole 40mg Tablet.DR PO SCH (08:22)
[2017-09-17] MEDS: potassium Cl 20 mEq SR tablet PO SCH ×2 (08:22→10:31)
[2017-09-17] MEDS: furosemide 20 MG/2 ML vial IV SCH (08:23)
[2017-09-17] MEDS: nitroGLYCERIN 0.4mg/hour patch TD SCH (08:23)
[2017-09-17] MEDS: enoxaparin 40mg/0.4ml syringe SUBCUT SCH (08:24)
[2017-09-17] MEDS: methylPREDNISolone sod succ 125mg/2ml vial IV SCH (08:24)
[2017-09-17] MEDS: lactobacillus rhamnosus 10,000 MMU CELLS/CAPSULE PO SCH (08:27)
[2017-09-17] MEDS: levoTHYROXINE 25mcg tablet PO SCH (08:28)
[2017-09-17] MEDS: aspirin 81mg tablet.DR PO SCH (08:28)
[2017-09-17] MEDS ORDERED: ALBU8.5H8 INH (09:11)
[2017-09-17] MEDS ORDERED: PANT40TA4 PO (09:11)
[2017-09-17] MEDS ORDERED: FLUT1DIS4 INH (09:11)
[2017-09-17] MEDS ORDERED: PRED20TA PO (09:11)
[2017-09-17] MEDS ORDERED: LEVO750T46 PO (09:11)
[2017-09-17] MEDS ORDERED: BENZ-34 PO (09:11)
[2017-09-17] MEDS ORDERED: LACT1CAP26 PO (09:11)
[2017-09-17] MEDS ORDERED: levoFLOXACIN 750MG TABLET PO SCH (11:00)
== END 2017-09-17 12:30 | disposition home health service (06) | DRG 291 ==
LOC: ER 10:00 → ED HOLD 14:30 → PCU 3S 21:53
PROVIDERS: ADMIT Internal Medicine; ATTEND Family Medicine
DX: I11.0 Hypertensive heart disease with heart failure (principal); J96.90 Respiratory failure, unspecified, unspecified whether with hypoxia or hypercapnia; J44.1 Chronic obstructive pulmonary disease with (acute) exacerbation; E87.1 Hypo-osmolality and hyponatremia; J44.0 Chronic obstructive pulmonary disease with (acute) lower respiratory infection; I50.31 Acute diastolic (congestive) heart failure; I48.0 Paroxysmal atrial fibrillation; F03.90 Unspecified dementia, unspecified severity, without behavioral disturbance, psychotic disturbance, mood disturbance, and anxiety; E78.5 Hyperlipidemia, unspecified; H11.32 Conjunctival hemorrhage, left eye; G89.29 Other chronic pain; J20.9 Acute bronchitis, unspecified; I25.10 Atherosclerotic heart disease of native coronary artery without angina pectoris; Z66 Do not resuscitate; I25.2 Old myocardial infarction; Z95.5 Presence of coronary angioplasty implant and graft; Z88.0 Allergy status to penicillin; Z88.1 Allergy status to other antibiotic agents; Z88.8 Allergy status to other drugs, medicaments and biological substances; Z87.891 Personal history of nicotine dependence
CPT/HCPCS: 36415; 71046; 80053; 83605; 83735; 83880; 85025; 87040; 87070; 93005; 94640; 94760; 96374; 97110; 97116; 97161; 99285; J1650; J1940; J1956; J2930

== ENCOUNTER 2017-09-19 12:37 | Inpatient (IN) | payer MEDICARE, BC ==
[~2017-09-19] VITALS: Ht 160 cm; Wt 75.0 kg
[~2017-09-19 12:37] MED LIST changes: +ALBU8.5H8 INH; +BENZ-34 PO; +FLUT1DIS4 INH; +LACT1CAP26 PO; +LEVO750T46 PO; +PANT40TA4 PO; +PRED20TA PO
[2017-09-19] MEDS ORDERED: normal saline 1000ml 1,000 ML IV ONE (12:46)
[2017-09-19 13:37] LABS: BASOPHILS % (AUTO) 0.3 % (0-1); EOSINOPHILS % (AUTO) 0.4 % (0-6); HEMATOCRIT 40.5 % (35.0-45.0); HEMOGLOBIN 13.7 g/dl (12.0-16.0); LYMPHOCYTES # (AUTO) 0.9 X10'3 (1.1-4.8); LYMPHOCYTES % (AUTO) 9.4 % (21-51); MEAN CORPUSCULAR HEMOGLOBIN 28.7 PG (27.0-31.0); MEAN CORPUSCULAR HGB CONC 33.8 % (33.0-36.5); MEAN CORPUSCULAR VOLUME 84.8 FL (78-98); MONOCYTES % (AUTO) 10.9 % (2-12); NEUTROPHILS # (AUTO) 7.5 X10'3 (1.8-7.7); PLATELET COUNT 272 X10'3 (140-440); RED BLOOD COUNT 4.77 X10'6 (4.20-5.60); RED CELL DISTRIBUTION WIDTH 13.1 % (11.5-14.5); WHITE BLOOD COUNT 9.5 X10'3 (4.5-11.0)
[2017-09-19 13:50] LABS: INR 1.1 INR; PARTIAL THROMBOPLASTIN TIME 24 SECONDS (22-32); PROTHROMBIN TIME 11.4 SECONDS (9.0-12.0)
[2017-09-19 14:00] LABS: ALANINE AMINOTRANSFERASE 29 U/L (12-78); ALBUMIN 3.4 G/DL (3.4-5.0); ALBUMIN/GLOBULIN RATIO 1.1 (1.1-1.5); ALKALINE PHOSPHATASE 80 IU/L (46-116); ANION GAP 6 (8-16); ASPARTATE AMINO TRANSFERASE 20 U/L (10-37); BILIRUBIN,TOTAL 0.8 MG/DL (0.1-1.0); BLOOD UREA NITROGEN 32 MG/DL (7-18); BUN/CREATININE RATIO 25.6 (6.6-38.0); CALCIUM 9.3 MG/DL (8.5-10.1); CHLORIDE 90 MMOL/L (99-107); CREATINE KINASE 55 U/L (26-192); CREATININE 1.25 MG/DL (0.40-0.90); GLUCOSE 103 MG/DL (70-104); MAGNESIUM 2.3 MG/DL (1.5-2.4); PHOSPHORUS 3.8 MG/DL (2.3-4.5); POTASSIUM 3.9 MMOL/L (3.5-5.1); SODIUM 124 MMOL/L (135-145); TOTAL CARBON DIOXIDE 27.9 MMOL/L (24-32); TOTAL PROTEIN 6.6 G/DL (6.4-8.2); eGFR 41 ML/MIN
[2017-09-19] MEDS ORDERED: HYDROcodone/acetaminophen 10/325mg tab PO ONE (15:55)
[2017-09-19] MEDS ORDERED: ondansetron/PF 4mg/2ml inj IV ONE (18:15)
[2017-09-19] MEDS ORDERED: potassium Cl 20 mEq SR tablet PO PRN (19:05)
[2017-09-19] MEDS ORDERED: magnesium hydroxide 30ml (MOM) UD suspension PO PRN (19:05)
[2017-09-19] MEDS ORDERED: potassium Cl 40MEQ/NS 500ml 500 ML IV PRN ×2 (19:05)
[2017-09-19] MEDS ORDERED: magnesium Cl slow-release 64mg tablet PO PRN (19:05)
[2017-09-19] MEDS ORDERED: bisacodyl 10mg suppository rectal RC PRN (19:05)
[2017-09-19] MEDS ORDERED: acetaminophen 325mg tablet PO PRN (19:05)
[2017-09-19] MEDS ORDERED: magnesium 4gm in 100ml NS 100 ML IV PRN (19:05)
[2017-09-19] MEDS ORDERED: ondansetron/PF 4mg/2ml inj IV PRN (19:05)
[2017-09-19] MEDS ORDERED: magnesium 2GM in 50ml NS 50 ML IV PRN (19:05)
[2017-09-19] MEDS ORDERED: mag hydrox/Alum hydrox/simeth 30ml oral suspension PO PRN (19:05)
[2017-09-19] MEDS ORDERED: nitroGLYCERIN 0.4mg SUBLingual tab SL PRN (19:10)
[2017-09-19] MEDS ORDERED: hydrALAZINE 20mg/ml inj. IV PRN (19:20)
[2017-09-19] MEDS ORDERED: albuterol 2.5 MG/3 ML nebule NEB PRN (19:20)
[2017-09-19 20:07] LABS: ALANINE AMINOTRANSFERASE 29 U/L (12-78); ALBUMIN 3.2 G/DL (3.4-5.0); ALKALINE PHOSPHATASE 77 IU/L (46-116); ASPARTATE AMINO TRANSFERASE 20 U/L (10-37); BILIRUBIN,DIRECT 0.3 MG/DL (0-0.3); BILIRUBIN,TOTAL 0.8 MG/DL (0.1-1.0)
[2017-09-19 20:09] LABS: TOTAL PROTEIN 6.4 G/DL (6.4-8.2)
[2017-09-19] MEDS: docusate sod 100mg capsule PO SCH (20:15)
[2017-09-19] MEDS: ticagrelor 90mg tablet PO SCH (20:15)
[2017-09-19] MEDS: heparin, porcine 5000 units/ml vial SQ SCH (20:16)
[2017-09-19] MEDS: levoFLOXACIN 750MG TABLET PO SCH (20:16)
[2017-09-19] MEDS: atorvastatin 20mg tablet PO SCH (20:16)
[2017-09-19] MEDS: memantine 5mg tablet PO SCH (20:16)
[2017-09-19] MEDS: normal saline 1000ml 1,000 ML IV SCH (20:23)
[2017-09-19 22:15] VITALS: BP_SYST 109; BP_SYST 123; BP_SYST 128; BP_DIAS 53; BP_DIAS 61; BP_DIAS 63
[2017-09-20] VITALS (8 sets, daily range): BP systolic 103–170; BP diastolic 36–68
[2017-09-20 01:34] LABS: ALANINE AMINOTRANSFERASE 32 U/L (12-78); ALBUMIN 3.2 G/DL (3.4-5.0); ALKALINE PHOSPHATASE 75 IU/L (46-116); ANION GAP 5 (8-16); ASPARTATE AMINO TRANSFERASE 21 U/L (10-37); BILIRUBIN,TOTAL 0.9 MG/DL (0.1-1.0); BLOOD UREA NITROGEN 31 MG/DL (7-18); BUN/CREATININE RATIO 27.2 (6.6-38.0); CALCIUM 8.7 MG/DL (8.5-10.1); CHLORIDE 91 MMOL/L (99-107); CREATININE 1.14 MG/DL (0.40-0.90); GLUCOSE 88 MG/DL (70-104); MAGNESIUM 2.1 MG/DL (1.5-2.4); PHOSPHORUS 3.3 MG/DL (2.3-4.5); POTASSIUM 3.7 MMOL/L (3.5-5.1); SODIUM 124 MMOL/L (135-145); TOTAL CARBON DIOXIDE 27.7 MMOL/L (24-32); TOTAL PROTEIN 6.3 G/DL (6.4-8.2); eGFR 45 ML/MIN
[2017-09-20] MEDS: normal saline 1000ml 1,000 ML IV SCH ×3 (01:44→09:36)
[2017-09-20 05:32] LABS: BASOPHILS % (AUTO) 0 % (0-1); EOSINOPHILS # (AUTO) 0.1 X10'3 (0-0.9); EOSINOPHILS % (AUTO) 1.7 % (0-6); HEMATOCRIT 38.1 % (35.0-45.0); HEMOGLOBIN 13.4 g/dl (12.0-16.0); LYMPHOCYTES # (AUTO) 0.8 X10'3 (1.1-4.8); LYMPHOCYTES % (AUTO) 9.7 % (21-51); MEAN CORPUSCULAR HEMOGLOBIN 28.8 PG (27.0-31.0); MEAN CORPUSCULAR HGB CONC 35.2 % (33.0-36.5); MEAN CORPUSCULAR VOLUME 81.9 FL (78-98); MEAN PLATELET VOLUME 7.2 FL (7.4-10.4); MONOCYTES # (AUTO) 1.1 X10'3 (0-0.9); MONOCYTES % (AUTO) 13.7 % (2-12); NEUTROPHILS % (AUTO) 74.9 % (42-75); PLATELET COUNT 252 X10'3 (140-440); RED BLOOD COUNT 4.65 X10'6 (4.20-5.60); RED CELL DISTRIBUTION WIDTH 13.4 % (11.5-14.5)
[2017-09-20] MEDS ORDERED: HYDROCHLOROTHIAZIDE PO SCH (08:00)
[2017-09-20] MEDS ORDERED: LISINOPRIL PO SCH (08:00)
[2017-09-20] MEDS ORDERED: [UNRECOGNIZED DRUG - OTHER] PO SCH (08:00)
[2017-09-20] MEDS: benzonatate 100mg capsule PO SCH ×3 (09:47→16:29)
[2017-09-20] MEDS: levoTHYROXINE 25mcg tablet PO SCH (09:47)
[2017-09-20] MEDS: predniSONE 20 mg tablet PO SCH (09:47)
[2017-09-20] MEDS: lactobacillus rhamnosus 10,000 MMU CELLS/CAPSULE PO SCH ×2 (09:48→16:30)
[2017-09-20] MEDS: multivitamins, therapeutics tablet PO SCH (09:48)
[2017-09-20] MEDS: pantoprazole 40mg Tablet.DR PO SCH (09:48)
[2017-09-20] MEDS: memantine 5mg tablet PO SCH ×2 (09:49→20:44)
[2017-09-20] MEDS: ticagrelor 90mg tablet PO SCH ×2 (09:49→20:44)
[2017-09-20] MEDS: aspirin 81mg tablet.DR PO SCH (09:49)
[2017-09-20] MEDS: amiodarone 200mg tablet PO SCH (09:49)
[2017-09-20] MEDS: lisinopril 10 MG tablet PO SCH (09:49)
[2017-09-20] MEDS: K and/or MAG REPLACEMENT MC SCH (09:50)
[2017-09-20] MEDS: HYDROchlorothiazide 12.5mg capsule PO SCH (09:50)
[2017-09-20] MEDS: docusate sod 100mg capsule PO SCH ×2 (09:51→20:44)
[2017-09-20] MEDS: heparin, porcine 5000 units/ml vial SQ SCH ×2 (09:52→20:45)
[2017-09-20 10:51] LABS: ANION GAP 8 (8-16); BLOOD UREA NITROGEN 21 MG/DL (7-18); BUN/CREATININE RATIO 19.6 (6.6-38.0); CALCIUM 8.6 MG/DL (8.5-10.1); CHLORIDE 94 MMOL/L (99-107); CREATININE 1.07 MG/DL (0.40-0.90); GLUCOSE 100 MG/DL (70-104); POTASSIUM 3.8 MMOL/L (3.5-5.1); SODIUM 128 MMOL/L (135-145); TOTAL CARBON DIOXIDE 26.3 MMOL/L (24-32); eGFR 49 ML/MIN
[2017-09-20] MEDS: atorvastatin 20mg tablet PO SCH (20:45)
[2017-09-21] MEDS: benzonatate 100mg capsule PO SCH ×3 (00:25→16:38)
[2017-09-21 03:00] VITALS: BP 114/60
[2017-09-21 06:09] LABS: BASOPHILS % (AUTO) 0 % (0-1); EOSINOPHILS # (AUTO) 0.2 X10'3 (0-0.9); EOSINOPHILS % (AUTO) 1.8 % (0-6); HEMATOCRIT 37.4 % (35.0-45.0); HEMOGLOBIN 12.9 g/dl (12.0-16.0); LYMPHOCYTES # (AUTO) 0.8 X10'3 (1.1-4.8); LYMPHOCYTES % (AUTO) 8.1 % (21-51); MEAN CORPUSCULAR HEMOGLOBIN 28.4 PG (27.0-31.0); MEAN CORPUSCULAR HGB CONC 34.4 % (33.0-36.5); MEAN CORPUSCULAR VOLUME 82.4 FL (78-98); MEAN PLATELET VOLUME 7.1 FL (7.4-10.4); MONOCYTES % (AUTO) 9.5 % (2-12); NEUTROPHILS # (AUTO) 8.3 X10'3 (1.8-7.7); NEUTROPHILS % (AUTO) 80.6 % (42-75); PLATELET COUNT 291 X10'3 (140-440); RED BLOOD COUNT 4.54 X10'6 (4.20-5.60); RED CELL DISTRIBUTION WIDTH 13.1 % (11.5-14.5); WHITE BLOOD COUNT 10.3 X10'3 (4.5-11.0)
[2017-09-21 06:23] LABS: ALANINE AMINOTRANSFERASE 16 U/L (12-78); ALBUMIN 2.6 G/DL (3.4-5.0); ALBUMIN/GLOBULIN RATIO 0.9 (1.1-1.5); ALKALINE PHOSPHATASE 67 IU/L (46-116); ANION GAP 3 (8-16); ASPARTATE AMINO TRANSFERASE 18 U/L (10-37); BILIRUBIN,TOTAL 0.8 MG/DL (0.1-1.0); BLOOD UREA NITROGEN 19 MG/DL (7-18); BUN/CREATININE RATIO 17.9 (6.6-38.0); CALCIUM 8.8 MG/DL (8.5-10.1); CHLORIDE 95 MMOL/L (99-107); CREATININE 1.06 MG/DL (0.40-0.90); GLUCOSE 92 MG/DL (70-104); POTASSIUM 3.3 MMOL/L (3.5-5.1); SODIUM 128 MMOL/L (135-145); TOTAL CARBON DIOXIDE 29.6 MMOL/L (24-32); TOTAL PROTEIN 5.4 G/DL (6.4-8.2); eGFR 49 ML/MIN
[2017-09-21 07:00] VITALS: BP 154/58
[2017-09-21 08:00] VITALS: BP_SYST 102; BP_SYST 154; BP_SYST 93; BP_DIAS 48; BP_DIAS 50; BP_DIAS 58
[2017-09-21] MEDS: K and/or MAG REPLACEMENT MC SCH (08:00)
[2017-09-21] MEDS: multivitamins, therapeutics tablet PO SCH (08:07)
[2017-09-21] MEDS: amiodarone 200mg tablet PO SCH (08:07)
[2017-09-21] MEDS: memantine 5mg tablet PO SCH ×2 (08:07→19:47)
[2017-09-21] MEDS: levoFLOXACIN 750MG TABLET PO SCH (08:07)
[2017-09-21] MEDS: potassium Cl 20 mEq SR tablet PO PRN ×3 (08:07→19:41)
[2017-09-21] MEDS: HYDROchlorothiazide 12.5mg capsule PO SCH (08:08)
[2017-09-21] MEDS: aspirin 81mg tablet.DR PO SCH (08:08)
[2017-09-21] MEDS: lisinopril 10 MG tablet PO SCH (08:08)
[2017-09-21] MEDS: lactobacillus rhamnosus 10,000 MMU CELLS/CAPSULE PO SCH ×2 (08:08→16:38)
[2017-09-21] MEDS: predniSONE 20 mg tablet PO SCH (08:08)
[2017-09-21] MEDS: pantoprazole 40mg Tablet.DR PO SCH (08:08)
[2017-09-21] MEDS: docusate sod 100mg capsule PO SCH ×2 (08:08→19:42)
[2017-09-21] MEDS: ticagrelor 90mg tablet PO SCH ×2 (08:09→19:43)
[2017-09-21] MEDS: levoTHYROXINE 25mcg tablet PO SCH (08:09)
[2017-09-21] MEDS: heparin, porcine 5000 units/ml vial SQ SCH ×2 (08:10→19:44)
[2017-09-21] MEDS: normal saline 1000ml 1,000 ML IV SCH ×2 (10:20→19:54)
[2017-09-21 11:00] VITALS: BP 124/56
[2017-09-21 19:00] VITALS: BP 107/46
[2017-09-21] MEDS: atorvastatin 20mg tablet PO SCH (19:47)
[2017-09-21 23:00] VITALS: BP 107/46
[2017-09-22] VITALS (7 sets, daily range): BP systolic 101–163; BP diastolic 48–78
[2017-09-22] MEDS: benzonatate 100mg capsule PO SCH ×3 (00:43→16:58)
[2017-09-22] MEDS: normal saline 1000ml 1,000 ML IV SCH ×2 (06:16→16:47)
[2017-09-22 07:25] LABS: ALANINE AMINOTRANSFERASE 28 U/L (12-78); ALBUMIN 2.5 G/DL (3.4-5.0); ALKALINE PHOSPHATASE 60 IU/L (46-116); ANION GAP 6 (8-16); ASPARTATE AMINO TRANSFERASE 23 U/L (10-37); BILIRUBIN,TOTAL 0.9 MG/DL (0.1-1.0); BLOOD UREA NITROGEN 22 MG/DL (7-18); BUN/CREATININE RATIO 25.6 (6.6-38.0); CALCIUM 8.4 MG/DL (8.5-10.1); CHLORIDE 99 MMOL/L (99-107); CREATININE 0.86 MG/DL (0.40-0.90); GLUCOSE 83 MG/DL (70-104); PHOSPHORUS 1.9 MG/DL (2.3-4.5); SODIUM 128 MMOL/L (135-145); TOTAL CARBON DIOXIDE 23.1 MMOL/L (24-32); TOTAL PROTEIN 5.1 G/DL (6.4-8.2); eGFR 63 ML/MIN
[2017-09-22] MEDS: heparin, porcine 5000 units/ml vial SQ SCH ×2 (08:00→19:46)
[2017-09-22] MEDS: K and/or MAG REPLACEMENT MC SCH (08:00)
[2017-09-22 08:04] LABS: POTASSIUM 4.2 MMOL/L (3.5-5.1)
[2017-09-22] MEDS: levoTHYROXINE 25mcg tablet PO SCH (08:06)
[2017-09-22] MEDS: multivitamins, therapeutics tablet PO SCH (08:06)
[2017-09-22] MEDS: predniSONE 20 mg tablet PO SCH (08:06)
[2017-09-22] MEDS: amiodarone 200mg tablet PO SCH (08:06)
[2017-09-22] MEDS: memantine 5mg tablet PO SCH ×2 (08:06→19:49)
[2017-09-22] MEDS: pantoprazole 40mg Tablet.DR PO SCH (08:06)
[2017-09-22] MEDS: docusate sod 100mg capsule PO SCH ×2 (08:07→19:46)
[2017-09-22] MEDS: HYDROchlorothiazide 12.5mg capsule PO SCH (08:07)
[2017-09-22] MEDS: lactobacillus rhamnosus 10,000 MMU CELLS/CAPSULE PO SCH ×2 (08:07→16:58)
[2017-09-22] MEDS: lisinopril 10 MG tablet PO SCH (08:07)
[2017-09-22] MEDS: ticagrelor 90mg tablet PO SCH ×2 (08:07→19:49)
[2017-09-22] MEDS: aspirin 81mg tablet.DR PO SCH (08:07)
[2017-09-22 10:48] LABS: BASOPHILS % (AUTO) 0 % (0-1); EOSINOPHILS # (AUTO) 0.2 X10'3 (0-0.9); EOSINOPHILS % (AUTO) 1.6 % (0-6); HEMOGLOBIN 13.5 g/dl (12.0-16.0); LYMPHOCYTES % (AUTO) 6.3 % (21-51); MEAN CORPUSCULAR HEMOGLOBIN 28.7 PG (27.0-31.0); MEAN CORPUSCULAR HGB CONC 33.8 % (33.0-36.5); MEAN CORPUSCULAR VOLUME 84.9 FL (78-98); MEAN PLATELET VOLUME 7.4 FL (7.4-10.4); MONOCYTES # (AUTO) 1.4 X10'3 (0-0.9); MONOCYTES % (AUTO) 9.2 % (2-12); NEUTROPHILS # (AUTO) 12.8 X10'3 (1.8-7.7); NEUTROPHILS % (AUTO) 82.9 % (42-75); PLATELET COUNT 288 X10'3 (140-440); RED BLOOD COUNT 4.71 X10'6 (4.20-5.60); RED CELL DISTRIBUTION WIDTH 13.5 % (11.5-14.5); WHITE BLOOD COUNT 15.4 X10'3 (4.5-11.0)
[2017-09-22] MEDS: acetaminophen 325mg tablet PO PRN (19:47)
[2017-09-22] MEDS: atorvastatin 20mg tablet PO SCH (19:48)
[2017-09-23] MEDS: benzonatate 100mg capsule PO SCH ×2 (00:39→08:21)
[2017-09-23 03:00] VITALS: BP 127/43
[2017-09-23] MEDS: normal saline 1000ml 1,000 ML IV SCH ×2 (03:09→12:30)
[2017-09-23 06:58] LABS: BASOPHILS % (AUTO) 0 % (0-1); EOSINOPHILS # (AUTO) 0.2 X10'3 (0-0.9); EOSINOPHILS % (AUTO) 1.9 % (0-6); HEMATOCRIT 34.8 % (35.0-45.0); HEMOGLOBIN 11.9 g/dl (12.0-16.0); LYMPHOCYTES # (AUTO) 0.9 X10'3 (1.1-4.8); LYMPHOCYTES % (AUTO) 8.8 % (21-51); MEAN CORPUSCULAR HEMOGLOBIN 28.5 PG (27.0-31.0); MEAN CORPUSCULAR HGB CONC 34.1 % (33.0-36.5); MEAN CORPUSCULAR VOLUME 83.8 FL (78-98); MEAN PLATELET VOLUME 7.5 FL (7.4-10.4); MONOCYTES # (AUTO) 1.1 X10'3 (0-0.9); NEUTROPHILS # (AUTO) 8.1 X10'3 (1.8-7.7); NEUTROPHILS % (AUTO) 78.3 % (42-75); PLATELET COUNT 266 X10'3 (140-440); RED BLOOD COUNT 4.15 X10'6 (4.20-5.60); RED CELL DISTRIBUTION WIDTH 13.4 % (11.5-14.5); WHITE BLOOD COUNT 10.3 X10'3 (4.5-11.0)
[2017-09-23 07:00] VITALS: BP 133/49
[2017-09-23 07:42] LABS: ALANINE AMINOTRANSFERASE 30 U/L (12-78); ALBUMIN 2.5 G/DL (3.4-5.0); ALKALINE PHOSPHATASE 68 IU/L (46-116); ANION GAP 9 (8-16); ASPARTATE AMINO TRANSFERASE 16 U/L (10-37); BILIRUBIN,TOTAL 0.7 MG/DL (0.1-1.0); BLOOD UREA NITROGEN 23 MG/DL (7-18); BUN/CREATININE RATIO 24.2 (6.6-38.0); CALCIUM 8.3 MG/DL (8.5-10.1); CHLORIDE 99 MMOL/L (99-107); CREATININE 0.95 MG/DL (0.40-0.90); GLUCOSE 80 MG/DL (70-104); MAGNESIUM 1.9 MG/DL (1.5-2.4); PHOSPHORUS 1.9 MG/DL (2.3-4.5); POTASSIUM 3.4 MMOL/L (3.5-5.1); SODIUM 130 MMOL/L (135-145); TOTAL CARBON DIOXIDE 22.3 MMOL/L (24-32); eGFR 56 ML/MIN
[2017-09-23] MEDS: K and/or MAG REPLACEMENT MC SCH (08:00)
[2017-09-23] MEDS: amiodarone 200mg tablet PO SCH (08:21)
[2017-09-23] MEDS: docusate sod 100mg capsule PO SCH (08:21)
[2017-09-23] MEDS: levoTHYROXINE 25mcg tablet PO SCH (08:21)
[2017-09-23] MEDS: lisinopril 10 MG tablet PO SCH (08:21)
[2017-09-23] MEDS: ticagrelor 90mg tablet PO SCH (08:21)
[2017-09-23] MEDS: predniSONE 20 mg tablet PO SCH (08:21)
[2017-09-23] MEDS: memantine 5mg tablet PO SCH (08:21)
[2017-09-23] MEDS: pantoprazole 40mg Tablet.DR PO SCH (08:21)
[2017-09-23] MEDS: lactobacillus rhamnosus 10,000 MMU CELLS/CAPSULE PO SCH (08:22)
[2017-09-23] MEDS: levoFLOXACIN 750MG TABLET PO SCH (08:22)
[2017-09-23] MEDS: aspirin 81mg tablet.DR PO SCH (08:22)
[2017-09-23] MEDS: multivitamins, therapeutics tablet PO SCH (08:22)
[2017-09-23] MEDS: heparin, porcine 5000 units/ml vial SQ SCH (08:22)
[2017-09-23] MEDS: HYDROchlorothiazide 12.5mg capsule PO SCH (08:22)
[2017-09-23 11:00] VITALS: BP 100/45
[2017-09-23] MEDS: acetaminophen 325mg tablet PO PRN (11:40)
[2017-09-23 15:00] VITALS: BP 145/54
[2017-09-23] MEDS ORDERED: lactobacillus rhamnosus 10,000 MMU CELLS/CAPSULE PO SCH (15:22)
== END 2017-09-23 16:00 | DRG 315 ==
LOC: ER 12:38 → ED HOLD 19:04 → CMPBEDREQ 21:51 → PCU 3S 21:54
PROVIDERS: ADMIT Internal Medicine; ATTEND Family Medicine
DX: I95.9 Hypotension, unspecified (principal); N17.9 Acute kidney failure, unspecified; J44.1 Chronic obstructive pulmonary disease with (acute) exacerbation; E87.1 Hypo-osmolality and hyponatremia; I48.0 Paroxysmal atrial fibrillation; E86.0 Dehydration; F03.90 Unspecified dementia, unspecified severity, without behavioral disturbance, psychotic disturbance, mood disturbance, and anxiety; G89.29 Other chronic pain; E78.5 Hyperlipidemia, unspecified; R09.02 Hypoxemia; Z66 Do not resuscitate; H11.30 Conjunctival hemorrhage, unspecified eye; T44.7X5A Adverse effect of beta-adrenoreceptor antagonists, initial encounter; I10 Essential (primary) hypertension; M19.90 Unspecified osteoarthritis, unspecified site; I25.10 Atherosclerotic heart disease of native coronary artery without angina pectoris; R00.1 Bradycardia, unspecified; I25.2 Old myocardial infarction; Z95.5 Presence of coronary angioplasty implant and graft; Z88.1 Allergy status to other antibiotic agents; Z88.0 Allergy status to penicillin; Z88.8 Allergy status to other drugs, medicaments and biological substances; Z79.899 Other long term (current) drug therapy; Z79.82 Long term (current) use of aspirin; Z87.891 Personal history of nicotine dependence; Y92.89 Other specified places as the place of occurrence of the external cause
CPT/HCPCS: 36415; 70450; 71045; 80048; 80053; 80076; 82550; 83735; 83880; 84100; 84145; 84439; 84443; 84484; 85025; 85610; 85730; 87070; 93005; 93880; 94640; 94760; 96374; 97110; 97116; 97161; 97530; 99285; A6213; J0360; J1644; J2405; J7030; J7512